=== PATIENT | male | born 1945 | race Caucasian/White ===

== ENCOUNTER 2021-05-24 11:02 | Emergency (ER) | payer MEDICARE, OTHER ==
[2021-05-24] MEDS ORDERED: BACITRACIN ZINC OINT 1 PACKET TOP STA (11:53)
--- NOTE | 2021-05-24 11:58 | ED Physician Documentation ---
History of Present Illness - Stated complaint Stated Complaint: L HAND LAC - Chief complaint Chief Complaint: Laceration - History obtained from History obtained from: Patient - Additonal information Additional information: 76-year-old man presents with skin tear to L forearm/hand after catching it on a concrete sculpture, falling back off a ladder 2 feet yesterday. also with R upper back discomfort. denies HT loc. Review of Systems Skin: reports: Other (avulsion L hand/forearm) Musculoskeletal: denies: Neck pain, Back pain Neurologic: reports: Head injury. denies: LOC PD PAST MEDICAL HISTORY - Past Medical History Past Medical History: Yes Cardiovascular: Hypertension - Past Surgical History Past Surgical History: Yes General: Appendectomy - Present Medications Home Medications: Ambulatory Orders Medication Instructions Recorded Confirmed Atenolol [Tenormin] 50 mg PO BID 05/24/21 05/24/21 amLODIPine [Norvasc] 2.5 mg PO DAILY 05/24/21 05/24/21 - Allergies Allergies/Adverse Reactions: Allergies Allergy/AdvReac Type Severity Reaction Status Date / Time No Known Drug Allergies Allergy Verified 05/24/21 11:25 - Social History Does the pt smoke?: No Smoking Status: Never smoker Does the pt drink ETOH?: Yes ETOH Use: Wine Does the pt have substance abuse?: Yes Substance Use and Type: CBD oil / Products - Immunizations Immunizations are current?: Yes PD ED PE NORMAL - Vitals Vital signs reviewed: Yes - General General: Alert and oriented X 3, No acute distress, Well developed/nourished - HEENT HEENT: Atraumatic, PERRL, EOMI - Neck Neck: No bony TTP - Cardiac Cardiac: RRR - Respiratory Respiratory: No respiratory distress, Clear bilaterally - Back Back: No spinal TTP - Derm Derm: Normal color, Warm and dry, Other (avulsed tissue to L dorsum of forearm and hand) - Neuro Neuro: Alert and oriented X 3, No motor deficit, No sensory deficit - Psych Psych: Normal mood, Normal affect Results - Vitals Vitals: Oxygen O2 Source Room air PD MEDICAL DECISION MAKING - ED course ED course: 68-year-old man presented with skin avulsion after a fall yesterday. biofilm and antibiotic ointment applied. Patient without midline back ttp. return precautions given. plan to f/u with pmd for wound check. Departure - Departure Disposition: 01 Home, Self Care Clinical Impression: Avulsion, skin Condition: Good Instructions: ED Avulsion Dermal Comments: You are seen in the emergency department for a skin avulsion (skin tear). We applied a special biofilm that should stay on the wound until it heals. You can change your bandage after 48 hours and apply Neosporin or bacitracin daily with wound changes. Use a nonstick bandage and wrap it with Curlex or equivalent gauze. Return to the emergency department if you develop any signs of infection or any new or worsening symptoms or other concerns. Follow-up with your primary doctor. Discharge Date/Time: 05/24/21 12:10
[2021-05-24 12:06] VITALS: BP 165/67
== END 2021-05-24 12:10 | disposition home or self-care (01) ==
LOC: ED 11:02
DX: S61.421A Laceration with foreign body of right hand, initial encounter (principal); W11.XXXA Fall on and from ladder, initial encounter
CPT/HCPCS: 99282; A9270